=== PATIENT | female | born 1975 | race Caucasian/White ===

== ENCOUNTER 2018-10-03 16:43 | Emergency (ER) | payer OTHER ==
[2018-10-03 17:21] VITALS: BP 133/70
--- NOTE | 2018-10-03 17:38 | UC ---
Lower Extremity/Ankle HPI - HPI Summary HPI Summary: 43-year-old female who works in a [employer] she states that she turned quickly and felt pain in the plantar surface of her left foot midportion. This happened yesterday. - History of Current Complaint Chief Complaint: UCLowerExtremity Stated Complaint: L FOOT INJ Time Seen by Provider: 10/03/18 17:37 Hx Obtained From: Patient Hx Last Menstrual Period: 08/07/18 ?: No Onset/Duration: Sudden Onset Severity Initially: Mild Severity Currently: Mild Pain Intensity: 7 Aggravating Factor(s): Ambulation Alleviating Factor(s): Rest Able to Bear Weight: Yes - Allergies/Home Medications Allergies/Adverse Reactions: Allergies Allergy/AdvReac Type Severity Reaction Status Date / Time acetaminophen [From Percocet] Allergy Itching Verified 10/03/18 17:15 oxycodone [From Percocet] Allergy Itching Verified 10/03/18 17:15 Home Medications: Home Medications NK [No Home Medications Reported] 10/03/18 [History Confirmed 10/03/18] PMH/Surg Hx/FS Hx/Imm Hx Previously Healthy: Yes GI/ History: Other - Gastric bypass - Surgical History Surgical History: Yes Surgery Procedure, Year, and Place: gastric bypass. gallbladder. . left ovarion tumor removed; left oophorectomy - Family History Known Family History: Positive: Non-Contributory - Social History Alcohol Use: Rare Substance Use Type: None Smoking Status (MU): Heavy Every Day Tobacco Smoker Type: Cigarettes Amount Used/How Often: 1/2 - 3/4 PPD Length of Time of Smoking/Using Tobacco: 16 YEARS Review of Systems All Other Systems Reviewed And Are Negative: Yes Motor: Positive: Negative Neurovascular: Positive: Negative Musculoskeletal: Positive: Negative, Other: - Complains of pain to the midportion plantar surface of left foot. Neurological: Positive: Negative Is Patient Immunocompromised?: No Physical Exam Triage Information Reviewed: Yes Appearance: Well-Appearing, No Pain Distress, Well-Nourished Vital Signs: Initial Vital Signs Temp 98.1 F 10/03/18 17:16 Pulse 77 10/03/18 17:16 Resp 16 10/03/18 17:16 BP 133/70 10/03/18 17:16 Pulse Ox 100 10/03/18 17:16 Vital Signs Reviewed: Yes Musculoskeletal: Positive: Strength Intact, ROM Intact, Other: - Good peripheral pulses neuro sensation capillary refill, base of the first and fifth metatarsal are nontender, Achilles is intact, patient has mild swelling of the left foot lateral aspect midportion plantar surface with no bruising or erythema deformity. Neurological: Positive: Alert, Muscle Tone Normal Psychological Exam: Normal Skin: Positive: Other Lower Extremity Course/Dx - Course Course Of Treatment: X-ray of the left foot was negative. She is to apply heat to the sore area may take Tylenol for pain. She can take Motrin because of her Gastric bypass surgery. She is to follow-up with your orthopedist or the executive assistant to general counsel early next week if she has continued pain. - Differential Dx/Diagnosis Provider Diagnosis: Strain of left foot Discharge - Sign-Out/Discharge Documenting (check all that apply): Patient Departure All imaging exams completed and their final reports reviewed: Yes - Discharge Plan Condition: Fair Disposition: HOME Patient Education Materials: Foot Sprain (ED) Referrals: Yazmin Sahu [Primary Care Provider] - Additional Instructions: Avoid movements that cause pain, take Tylenol for pain. Definite follow-up with the orthopedist if you have continued pain. - Billing Disposition and Condition Condition: FAIR Disposition: Home - Attestation Statements Provider Attestation: Per institutional requirements, I have reviewed the chart, however, I was not consulted specifically or made aware of this patient by the midlevel provider. I did not personally evaluate, interact with , or disposition this patient.
== END 2018-10-03 18:14 | disposition home or self-care (01) ==
LOC: UCCORT 16:43
DX: S96.912A Strain of unspecified muscle and tendon at ankle and foot level, left foot, initial encounter (principal); F17.210 Nicotine dependence, cigarettes, uncomplicated; Z98.84 Bariatric surgery status; Z88.6 Allergy status to analgesic agent; X50.0XXA Overexertion from strenuous movement or load, initial encounter; Y93.9 Activity, unspecified; Y92.009 Unspecified place in unspecified non-institutional (private) residence as the place of occurrence of the external cause
CPT/HCPCS: 99201; G0463